=== PATIENT | female | born 2000 | race Caucasian/White ===

== ENCOUNTER 2022-01-08 20:19 | Emergency (ER) | payer OTHER ==
[~2022-01-08 20:19] MED LIST: LAMICTAL100 MG PO; ORTHO-CYCLEN 21 EACH PO; ZOFRAN4 MG PO
[2022-01-08 21:01] LABS: BASOPHIL 0.3 % (0-2); EOSINOPHIL 3.6 % (0-5); HGB 12.6 g/dl (12.5-16.0); LYMPHOCYTE 36.8 % (15-48); MCH 27.8 pg (25.0-31.0); MCHC 33.2 g/dL (32.0-36.0); MCV 83.7 fL (78.0-100.0); MONOCYTE 6.7 % (0-12); MPV 8.6 fL (6.0-9.5); NEUTROPHIL 52.4 % (41-80); NRBC 0; PLT 291 K/uL (150-400); RBC 4.54 M/uL (4.20-5.40); WBC 9.1 K/uL (4.0-10.5)
[2022-01-08 21:17] LABS: ALBUMIN 3.4 g/dL (3.4-5.0); BILIRUBIN - TOTAL 0.2 mg/dL (0.2-1.0); BUN/CREAT RATIO (CALC) 17.5 RATIO; CREATININE 0.63 mg/dL (0.51-0.95); GLOBULIN (CALCULATION) 3.3 g/dL; MAGNESIUM 1.7 mg/dL (1.8-2.4); PHOSPHORUS 3.4 mg/dL (2.6-4.7); POTASSIUM 3.8 mmol/L (3.5-5.1); TOTAL PROTEIN 6.7 g/dL (6.4-8.2)
== END 2022-01-08 21:45 | disposition home or self-care (01) ==
LOC: FER 20:19
PROVIDERS: Emergency Medicine
DX: R00.2 Palpitations (principal); E83.42 Hypomagnesemia; U07.1 COVID-19; Z88.0 Allergy status to penicillin
CPT/HCPCS: 36415; 71045; 80053; 83735; 84100; 84484; 85025; 85379; 93005; U0002